=== PATIENT | female | born 1975 | race Hispanic/Latino ===

== ENCOUNTER → 2023-07-11 | Outpatient (REF) | payer OTHER | LOC: US 07-04 08:21 | PROVIDERS: ATTEND Family Medicine | DX: Q44.6 Cystic disease of liver (principal); M79.672 Pain in left foot; M79.671 Pain in right foot | CPT/HCPCS: 76700 ==

== ENCOUNTER → 2023-12-09 | Outpatient (REF) | payer OTHER | LOC: US 10:12 | PROVIDERS: ATTEND Family Medicine | DX: R10.9 Unspecified abdominal pain (principal); Q44.6 Cystic disease of liver; K76.89 Other specified diseases of liver | CPT/HCPCS: 76700 ==